=== PATIENT | male | born 1960 | race Caucasian/White ===

== ENCOUNTER 2019-06-18 15:10 | Emergency (ER) | payer MEDICAID, MEDICARE ==
[2019-06-18] MEDS ORDERED: NALOXONE HCL INJ/PF 0.4 MG/1 ML SDV IV ONE (15:52)
--- NOTE | 2019-06-18 16:02 | ER Document Report ---
ED General - General Chief Complaint: Altered Mental Status Stated Complaint: ALTERED MENTAL STATUS Time Seen by Provider: 06/18/19 15:45 Mode of Arrival: Ambulatory Information source: Patient, Relative Cannot obtain history due to: Altered mental status TRAVEL OUTSIDE OF THE [place] IN LAST 30 DAYS: No - HPI Onset: This morning Onset/Duration: Gradual Quality of pain: No pain Severity: Severe Pain Level: Denies Associated symptoms: Nonproductive cough, Shortness of breath Exacerbated by: Denies Relieved by: Denies Similar symptoms previously: No Recently seen / treated by doctor: No Notes: 58 year old male with a history of HTN, "Irregular Heart Beat" s/p Pacemaker, and Seizures brought in by his for altered mental status. The patient apparently has not been right all day. The patient has been sleeping basically all day and when his is able to speak with him, he seems off to her. The patient's has not noticed any seizure like activity, bowel or bladder incontinence, fevers, chills, sweats productive cough. The patient has been on pain meds and anxiety medications in the past but the says he has not been using these since April. The denies alcohol or drug use. The patient will fall asleep when talking to me but he will awake with a sternal rub. - Related Data Allergies/Adverse Reactions: cyclobenzaprine [From Flexeril] Allergy (Verified 06/18/19 15:25) Iodinated Contrast Media Allergy (Verified 06/18/19 15:25) primidone Allergy (Verified 06/18/19 15:25) trazodone Allergy (Verified 06/18/19 15:25) Past Medical History - General Information source: Patient, Relative Cannot obtain history due to: Altered mental status - Social History Smoking Status: Current Some Day Smoker Chew tobacco use (# tins/day): No Frequency of alcohol use: None Drug Abuse: None Lives with: Spouse/Significant other Family History: Reviewed & Not Pertinent Patient has suicidal ideation: No Patient has homicidal ideation: No - Past Medical History Cardiac Medical History: Reports: Hx Hypertension, Other - irregular heart beat s/p pacemaker Neurological Medical History: Reports: Hx Seizures Review of Systems - Review of Systems Notes: ROS obtained mostly from patient's since patient seems to go in and out of consciousness Constitutional: Other - intermittent somnolence EENT: No symptoms reported Cardiovascular: No symptoms reported Respiratory: Cough, Short of breath Gastrointestinal: No symptoms reported Genitourinary: No symptoms reported Male Genitourinary: No symptoms reported Musculoskeletal: No symptoms reported Skin: No symptoms reported Hematologic/Lymphatic: No symptoms reported Neurological/Psychological: Confusion, Lost consciousness -: Yes All other systems reviewed and negative Physical Exam - Vital signs Vitals: Resp Pulse Ox 14 95 06/18/19 15:20 06/18/19 15:20 - Notes Notes: GENERAL: Patient seems to be going in and out of consciousness but will arouse with sternal rub. Well-nourished and in no acute distress. HEAD: Atraumatic, normocephalic. EYES: Pupils are somewhat pinpoint but equal round and reactive to light, extraocular movements intact, sclera anicteric, conjunctiva are normal. ENT: Nares patent, oropharynx clear without exudates. Moist mucous membranes. NECK: Normal range of motion, supple without lymphadenopathy or JVD. LUNGS: Breath sounds clear to auscultation bilaterally and equal. No wheezes rales or rhonchi. HEART: Regular rate and rhythm without murmurs, rubs or gallops. ABDOMEN: Soft, nontender, normoactive bowel sounds. No guarding, no rebound. No masses appreciated. EXTREMITIES: Normal range of motion, no pitting or edema. No clubbing or cyanosis. NEUROLOGICAL: Cranial nerves II through XII grossly intact. Normal speech, normal gait. Patient quickly falls back asleep after you wake him. PSYCH: Normal mood, normal affect. SKIN: Warm, Dry, normal turgor, no rashes or lesions noted. Course - Re-evaluation Re-evalutation: 06/18/19 22:36 The patient was altered her entire ER stay. Drug screens, CT, blood work all showed no reason for his condition but his blood gas continued to show he was hypoxic despite being on bipap for several hours. I looked the patient up in the Drug Database and the patient just filled a script for Buprenorphine which apparently doesnt show up in a urine tox. 06/18/19 23:04 The patient was going to be admitted and with further questioning from the hospitalist, the patient's told him that the patient used lots of Goodies and BCs. With this piece of information which was not told to any healthcare worker earlier in his work up, an ASA level was drawn on his original blood/lab draw and it came back at 36.3. Poison Control was immediately called as well as the [facility]. Plan is to repeat the patient's ASA level now to see if it is rising. Will possibly give bicarb depending on repeat ASA level. 06/19/19 00:58 The patient was re-evaluated by me at the time of EMS arrival. Patient is in his same state of health which is somnolent despite being on bipap. Repeat ASA level is down trending which is reassuring. - Vital Signs Vital signs: Temp Pulse Resp BP Pulse Ox 59 L 15 114/71 97 06/18/19 19:56 06/19/19 00:00 06/19/19 00:00 06/19/19 00:00 - Laboratory Result Diagrams: 06/18/19 14:50 06/18/19 23:00 Laboratory results interpreted by me: 06/18/19 06/18/19 06/18/19 14:50 14:50 14:50 RDW 15.8 H D-Dimer 0.54 H Carbonic Acid ABG pH ABG pCO2 ABG pO2 ABG O2 Saturation Chloride 110 H BUN Glucose 149 H POC Glucose Urine Ketones Urine Urobilinogen Urine Ascorbic Acid Salicylates Acetaminophen 06/18/19 06/18/19 06/18/19 14:50 14:50 15:15 RDW D-Dimer Carbonic Acid ABG pH ABG pCO2 ABG pO2 ABG O2 Saturation Chloride BUN Glucose POC Glucose 191 H Urine Ketones Urine Urobilinogen Urine Ascorbic Acid Salicylates 36.3 H* Acetaminophen < 10 L 06/18/19 06/18/19 06/18/19 16:52 18:35 20:20 RDW D-Dimer Carbonic Acid 1.36 H 1.43 H ABG pH 7.31 L 7.29 L ABG pCO2 45.3 H 47.5 H ABG pO2 61.3 L ABG O2 Saturation 89.4 L Chloride BUN Glucose POC Glucose Urine Ketones 20 H Urine Urobilinogen 2.0 H Urine Ascorbic Acid 40 H Salicylates Acetaminophen 06/18/19 06/18/19 23:00 23:00 RDW D-Dimer Carbonic Acid ABG pH ABG pCO2 ABG pO2 ABG O2 Saturation Chloride 111 H BUN 21 H Glucose POC Glucose Urine Ketones Urine Urobilinogen Urine Ascorbic Acid Salicylates 26.8 H* Acetaminophen - Diagnostic Test Radiology reviewed: Image reviewed, Reports reviewed - EKG Interpretation by Me EKG shows normal: Sinus rhythm, [place], Intervals Rate: Normal Rhythm: NSR Additional EKG results interpreted by me: 06/18/19 18:04 T wave inversions in aVR V1, V2. Nonspecific intraventricular conduction delays. Critical Care Note - Critical Care Note Total time excluding time spent on procedures (mins): 45 Discharge - Discharge Clinical Impression: Hypoxemia Aspirin overdose Qualifiers: Encounter type: initial encounter Injury intent: accidental or unintentional Qualified Code(s): T39.011A - Poisoning by aspirin, accidental (unintentional), initial encounter Condition: Critical Disposition: [facility] Admitting Provider: Dr. Escamilla
[2019-06-18 16:08] LABS: HEMATOCRIT 44.8 % (37.9-51.0); MEAN CORPUSCULAR HEMOGLOBIN 31.3 pg (27.0-33.4); MEAN CORPUSCULAR HGB CONC 33.4 g/dL (32.0-36.0); MEAN CORPUSCULAR VOLUME 94 fl (80-97); PLATELET COUNT 229 10^3/uL (150-450); RED BLOOD COUNT 4.79 10^6/uL (4.35-5.55); RED CELL DISTRIBUTION WIDTH 15.8 % (11.5-14.0); WHITE BLOOD COUNT 5.7 10^3/uL (4.0-10.5)
[2019-06-18 16:10] LABS: ABSOLUTE BASOPHILS # (AUTO) 0.1 10^3/uL (0.0-0.2); ABSOLUTE EOSINOPHILS # (AUTO) 0.1 10^3/uL (0.0-0.6); ABSOLUTE MONOCYTES (AUTO) 0.6 10^3/uL (0.1-1.4); ABSOLUTE NEUT (AUTO) 3.2 10^3/uL (1.7-8.2); BASOPHILS % (AUTO) 1.5 % (0-2); EOSINOPHILS % (AUTO) 1.8 % (0-6); LYMPHOCYTES % (AUTO) 34.1 % (13-45); MONOCYTES % (AUTO) 10.2 % (3-13); SEGMENTED NEUTROPHILS % (AUTO) 52.4 % (42-78)
[2019-06-18 16:18] LABS: ALBUMIN 4.1 g/dL (3.5-5.0); ALKALINE PHOSPHATASE 63 U/L (38-126); ANION GAP 9 (5-19); ASPARTATE AMINO TRANSFERASE 29 U/L (17-59); BILIRUBIN,DIRECT 0.1 mg/dL (0.0-0.4); BILIRUBIN,TOTAL 0.4 mg/dL (0.2-1.3); BLOOD UREA NITROGEN 18 mg/dL (7-20); CALCIUM 9.3 mg/dL (8.4-10.2); CARBON DIOXIDE 24 mmol/L (22-30); CHLORIDE 110 mmol/L (98-107); GLUCOSE 149 mg/dL (75-110); POTASSIUM 3.9 mmol/L (3.6-5.0); TOTAL PROTEIN 6.9 g/dL (6.3-8.2)
[2019-06-18 16:20] LABS: ALCOHOL < 10 mg/dL (NONE DETECTED)
[2019-06-18 16:30] LABS: TROPONIN I 0.015 ng/mL
[2019-06-18 16:42] LABS: TOTAL CELLS COUNTED % (AUTO) 100 %
--- NOTE | 2019-06-18 16:57 | RADIOLOGY REPORT (SQ) ---
EXAM DESCRIPTION: CHEST SINGLE VIEW COMPLETED DATE/TIME: 06/18/2019 4:34 pm REASON FOR STUDY: eval for pneumonia COMPARISON: None. EXAM PARAMETERS: NUMBER OF VIEWS: One view. TECHNIQUE: Single frontal radiographic view of the chest acquired. RADIATION DOSE: NA LIMITATIONS: None. FINDINGS: LUNGS AND PLEURA: No opacities, masses or pneumothorax. No pleural effusion. MEDIASTINUM AND HILAR STRUCTURES: No masses. Contour normal. HEART AND VASCULAR STRUCTURES: Heart normal in size. Normal vasculature. BONES: No acute findings. HARDWARE: Left-sided dual lead pacemaker. Lower cervical fusion hardware OTHER: No other significant finding. IMPRESSION: No acute findings TECHNICAL DOCUMENTATION: JOB ID: [id number] [employer]- All Rights Reserved Reading location - IP/workstation name: [email or web address]
--- NOTE | 2019-06-18 17:06 | RADIOLOGY REPORT (SQ) ---
EXAM DESCRIPTION: CT HEAD WITHOUT COMPLETED DATE/TIME: 06/18/2019 4:31 pm REASON FOR STUDY: eval for AMS COMPARISON: None. TECHNIQUE: Axial images acquired through the brain without intravenous contrast. Images reviewed wi th bone, brain and subdural windows. Additional sagittal and coronal reconstructions were generated. Images stored on PACS. All CT scanners at this facility use dose modulation, iterative reconstruction, and/or weight based d osing when appropriate to reduce radiation dose to as low as reasonably achievable (ALARA). [facility]: Dose Right [facility]: CareDose [facility]: Dose Right [facility]: Teradose 4D [facility]: Smart Show de Ingressos RADIATION DOSE: CT Rad equipment meets quality standard of care and radiation dose reduction techniq ues were employed. CTDIvol: 53.2 mGy. DLP: 1044 mGy-cm. mGy. LIMITATIONS: None. FINDINGS: VENTRICLES: Normal size and contour. CEREBRUM: No masses. No hemorrhage. No midline shift. No evidence for acute infarction. Normal gra y/white matter differentiation. No areas of low density in the white matter. CEREBELLUM: No masses. No hemorrhage. No alteration of density. No evidence for acute infarction. EXTRAAXIAL SPACES: No fluid collections. No masses. ORBITS AND GLOBE: No intra- or extraconal masses. Normal contour of globe without masses. CALVARIUM: No fracture. PARANASAL SINUSES: No fluid or mucosal thickening. SOFT TISSUES: No mass or hematoma. OTHER: No other significant finding. IMPRESSION: NORMAL BRAIN CT WITHOUT CONTRAST. EVIDENCE OF ACUTE STROKE: NO. COMMENT: Quality ID # [id number]: Final reports with documentation of one or more dose reduction techniques (e.g., Automated exposure control, adjustment of the mA and/or kV according to patient size, use of iterative reconstruction technique) TECHNICAL DOCUMENTATION: JOB ID: [id number] [employer]- All Rights Reserved Reading location - IP/workstation name: [email or web address]
[2019-06-18 17:12] LABS: ARTERIAL BLOOD BASE EXCESS -3.8 mmol/L; ARTERIAL BLOOD H2CO3 1.36 mmol/L (1.05-1.35); ARTERIAL BLOOD HCO3 22.5 mmol/L (20-24); ARTERIAL BLOOD O2 SATURATION 89.4 % (94-98); ARTERIAL BLOOD PCO2 45.3 mmHg (35-45); ARTERIAL BLOOD PH 7.31 (7.35-7.45); ARTERIAL BLOOD PO2 61.3 mmHg (80-100); ARTERIAL BLOOD TOTAL CO2 23.8 mmol/L (23-27)
[2019-06-18 17:19] LABS: ARTERIAL BLOOD FIO2 ROOM AIR
[2019-06-18 19:25] LABS: APPEARANCE,URINE CLEAR; BILIRUBIN,URINE NEGATIVE (NEGATIVE); COLOR,URINE YELLOW; GLUCOSE, URINE NEGATIVE (NEGATIVE); KETONES,URINE 20 mg/dL (NEGATIVE); LEUKOCYTE ESTERASE,URINE NEGATIVE (NEGATIVE); NITRITE,URINE NEGATIVE (NEGATIVE); PROTEIN,URINE NEGATIVE (NEGATIVE); URINE SPECIFIC GRAVITY 1.024
[2019-06-18 19:39] LABS: URINE AMPHETAMINES SCREEN NEGATIVE; URINE BARBITURATES SCREEN NEGATIVE; URINE BENZODIAZEPINES SCREEN NEGATIVE; URINE COCAINE SCREEN NEGATIVE; URINE MARIJUANA (THC) SCREEN NEGATIVE; URINE METHADONE SCREEN NEGATIVE; URINE PHENCYCLIDINE SCREEN NEGATIVE
[2019-06-18 20:47] LABS: ARTERIAL BLOOD BASE EXCESS -4.6 mmol/L; ARTERIAL BLOOD H2CO3 1.43 mmol/L (1.05-1.35); ARTERIAL BLOOD HCO3 22.2 mmol/L (20-24); ARTERIAL BLOOD O2 SATURATION 95.6 % (94-98); ARTERIAL BLOOD PCO2 47.5 mmHg (35-45); ARTERIAL BLOOD PH 7.29 (7.35-7.45); ARTERIAL BLOOD PO2 87.7 mmHg (80-100); ARTERIAL BLOOD TOTAL CO2 23.7 mmol/L (23-27)
[2019-06-18 20:49] LABS: ARTERIAL BLOOD FIO2 30%
[2019-06-18] MEDS ORDERED: NALOXONE HCL INJ 2 MG/2 ML DISP.SYRIN IV ONE (22:36)
[2019-06-18] MEDS ORDERED: SODIUM BICARBONATE 8.4% INJ 50 MEQ/50 ML DISP.SYRIN IV ONE (22:58)
[2019-06-18 23:34] LABS: ALBUMIN 3.8 g/dL (3.5-5.0); ALKALINE PHOSPHATASE 58 U/L (38-126); ANION GAP 9 (5-19); ASPARTATE AMINO TRANSFERASE 24 U/L (17-59); BILIRUBIN,DIRECT 0.4 mg/dL (0.0-0.4); BILIRUBIN,TOTAL 0.4 mg/dL (0.2-1.3); BLOOD UREA NITROGEN 21 mg/dL (7-20); CARBON DIOXIDE 23 mmol/L (22-30); CHLORIDE 111 mmol/L (98-107); GLUCOSE 82 mg/dL (75-110); POTASSIUM 3.9 mmol/L (3.6-5.0); TOTAL PROTEIN 6.5 g/dL (6.3-8.2)
[2019-06-19 01:01] VITALS: BP 111/70
--- NOTE | 2019-06-19 13:00 | EKG REPORT ---
SEVERITY:- ABNORMAL ECG - SINUS RHYTHM NONSPECIFIC INTRAVENTRICULAR CONDUCTION DELAY BORDERLINE INFERIOR Q WAVES : Confirmed by: Chase Farmer 19-Jun-2019 12:59:46
== END 2019-06-19 01:32 | disposition short-term general hospital (02) ==
LOC: ER 15:10
DX: R09.02 Hypoxemia (principal); T39.011A Poisoning by aspirin, accidental (unintentional), initial encounter; X58.XXXA Exposure to other specified factors, initial encounter; R41.82 Altered mental status, unspecified; R05 Cough; R06.02 Shortness of breath; I10 Essential (primary) hypertension; F17.200 Nicotine dependence, unspecified, uncomplicated; Z95.0 Presence of cardiac pacemaker
CPT/HCPCS: 93005; 96376; 99291; 96374; 36415; 82962; 80307 ×4; 82140; 82803; 83605; 85025; 87070; 80053; 81001; 84484; 85379; 80201; 83880; 71045; 70450; 93010; 94660; J2310 ×2